=== PATIENT | male | born 1965 | race Caucasian/White ===

== ENCOUNTER 2019-01-01 10:31 | Day surgery (SDC) | payer OTHER ==
--- NOTE | 2019-01-01 06:41 | History and Physical - [place] ---
CHIEF COMPLAINT/HISTORY OF CHIEF COMPLAINT: This patient presents with a history of intractable lumbar radiculopathy. Due to the failure of therapy a spinal cord stimulator trial was conducted on 12/10/18 with 75-85% pain control. Due to the failure of therapy and the success of the trial, the patient presents for implantation of a permanent system. PAST MEDICAL HISTORY: Chronic obstructive pulmonary disease. PAST SURGICAL HISTORY: None listed. MEDICATIONS ON ADMISSION: List to be provided. No blood thinners. ALLERGIES: None. FAMILY/PSYCHOSOCIAL HISTORY: Social history - Noncontributory. Family history - Diabetes. SYSTEMS REVIEW: The patient is appropriate in no acute distress. The remainder of the systems review is positive for glasses. PHYSICAL EXAMINATION: Height is 5'10", weight is 250. No vital signs. HEENT: Within normal limits. LUNGS: Clear. HEART: Rapid and regular. ABDOMEN: Nontender. MUSCULOSKELETAL: Examination of the musculoskeletal system shows pain across the back with a left and right lower extremity pain pattern somewhat more left than right. There are mild motor and sensory abnormalities to the left. Ambulation - No assistive device utilized. NEUROLOGIC: Cranial nerves are intact. IMPRESSION: LUMBAR RADICULOPATHY, ICD-10 CODE M54.16 AND M54.17. PLAN: The patient is here for an implanted spinal cord stimulator after a successful trial and the failure of all other therapies. The procedure will be considered outpatient although an overnight stay will be evaluated. JOB NUMBER: [id number] MTDD
[~2019-01-01 10:31] MED LIST: ACETAMINOPHEN 1,000 MG/100 ML BTL IVPB ONE; FAMOTIDINE 20MG TABLET PO ONE; MECLIZINE 25 MG TABLET PO ONE; METOCLOPRAMIDE 10 MG TABLET PO ONE; VANCOMYCIN 1GM/200ML PREMIX 1 GM/200 ML PIGGYBACK IVPB ONE
[2019-01-01] MEDS ORDERED: LIDOCAINE 2% MDV (20MG/ML) 20ML VIAL IV ONE (10:32)
[2019-01-01] MEDS ORDERED: GLYCOPYRROLATE 0.2 MG/ML ML IV ONE (10:32)
[2019-01-01] MEDS ORDERED: ALFENTANIL HCL 500 MCG/1ML, 2ML AMP IV ONE (10:32)
[2019-01-01] MEDS ORDERED: MIDAZOLAM HCL 2MG/2ML VIAL IV ONE (10:32)
[2019-01-01] MEDS ORDERED: KETAMINE HCL 100MG/1ML VIAL INJ ONE (10:32)
[2019-01-01] MEDS ORDERED: PROPOFOL 10 MG/ML VIAL IV ONE (10:32)
[2019-01-01] MEDS ORDERED: 0.9 % SODIUM CHLORIDE 1000ML 1,000 ML IV ONE (11:00)
[2019-01-01] MEDS ORDERED: CEFAZOLIN 1G VIAL IVP ONE (13:25)
[2019-01-01] MEDS ORDERED: LIDOCAINE 1% W/EPI 1:100,000 MDV 20 ML VIAL SQ ONE ×2 (13:36)
[2019-01-01] MEDS ORDERED: BUPIVACAINE 0.5% W/EPI MPF 30 ML VIAL SQ ONE ×2 (13:37)
[2019-01-01] MEDS ORDERED: RINGERS SOLUTION,LACTATED 1,000 ML IV ONE (14:49)
--- NOTE | 2019-01-02 19:56 | RADIOLOGY REPORT ---
EXAM: SPINE, 1 VIEW HISTORY: STATUS POST SPINAL STIMULATOR DEVICE PLACEMENT. TECHNIQUE: A single AP view of the thoracic spine was obtained. COMPARISON: None. FINDINGS: A spinal stimulator is in place with the electrodes extending to the level of the superior endplate of T7. No complicating features are identified. Mild multilevel degenerative changes are present throughout the thoracic region. IMPRESSION: SPINAL STIMULATOR ELECTRODES IN PLACE EXTENDING TO THE LEVEL OF THE SUPERIOR ENDPLATE OF T7. JOB NUMBER: [id number] MTDD
--- NOTE | 2019-01-03 07:13 | Operative Note ---
DATE OF SURGERY: 01/01/2019 PREOPERATIVE DIAGNOSIS: Lumbar radiculopathy ICD10 code M54.16 and M54.17. OPERATION: 1. Fluoroscopic-guided epidural access left T12-L1, placement of spinal cord stimulator lead 1 [place] [employer] Infinion 16, 6 electrodes positioned left T7. 2. Fluoroscopic-guided epidural access left L1-2, placement of spinal cord stimulator lead 2 [employer] In[employer] 16, 6 electrodes positioned right T7. 3. Complex programming of lead 1 over 20 minutes followed by complex programming of lead 2 over 20 minutes. 4. Incision and subcutaneous dissection and anchoring of lead 1 and lead 2 to supraspinous fascia with a [employer] locking anchor and nonabsorbable suture. 5. Incision and subcutaneous dissection and creation of subcutaneous pouch at right flank, placement of generator site picked by patient. 6. Tunneling between pouches, placement of external portion of lead 1 and lead 2 into generator pouch, each lead interfaced with generator. 7. Placement of generator pouch, placement of leads into the pouch, closure of both incisions using Stratafix suture 2-0 fascia, 3-0 skin, and Dermabond closure. A complex recovery room programming internal generator home use 2 stimulators 20 minutes. SURGEON: Cesar Mcwilliams, ANESTHESIA: Local with sedation. ANESTHESIA PROVIDER: Vanessa Connolly INDICATION: This patient presents with a history of intractable lumbar radiculopathy. Due to the failure of all therapies, a stimulator trial was conducted with 75% to 85% pain control. Due to the failure of therapy and the success of the trial, the patient presents today for implantation of permanent system. PROCEDURE: Intravenous line, vital sign monitoring, IV sedation by Anesthesia. Patient positioned prone. Sterile prep, sterile technique. Under imaging, the epidural interspace from the left at T12-L1 and L1-2 were marked, infiltrated with local. Then using 2 standard curved access Epimed needles with loss of resistance, the space was accessed. At 12-1, spinal cord stimulator lead 1, a [employer]fin[employer] 16, 6 electrodes positioned left of midline at T7. With the access at 1-2, spinal cord stimulator lead 2, [employer] 16, 6 electrodes positioned right at T7. The access was atraumatic. No blood, no CSF. With the leads in appropriate position and the patient awake, complex programming of the 2 leads over 20 minutes performed resulting in a complete pattern stimulation across the back and into the legs. Patient indicating we had all the areas of the pain. He was given the option to reprogram, to continue to program, or to implant the device. He opted to implant the device. The question was repeated with the same response. He was re-sedated. The skin above and below the needles infiltrated. Incision was made and subcutaneous dissection was conducted to the supraspinous fascia. The needles were removed and then each lead was anchored to the supraspinous fascia with a [place] locking anchor and nonabsorbable suture. At the right flank, a site picked by the patient, skin infiltrated, incision made, and subcutaneous dissection was conducted to form a pouch of suitable size and depth for the generator, a [place] programmable rechargeable WaveWriter. The skin below was infiltrated with local at both sites for postoperative pain control. A tunneling tool was used to carry the leads in the generator pouch, and then each lead was interfaced to the generator. Antibiotic irrigation and Bovie for hemostasis. The generator and its connections were placed into the pouch. The leads were placed into their own pouch, and then both incisions were closed using Stratafix suture, 2-0 fascia, and 3-0 skin. Dermabond closure was then used to approximate the edges of both wounds. He was transferred to recovery room stable. No side effects from the procedure or sedation. He had full functionality of extremities. Complex reprogramming was performed reestablishing stimulation and pain control. The patient and were instructed on the use of the system. He was requesting discharge home. DISCHARGE INSTRUCTIONS: 1. The sites to remain clean and dry. No showering or bathing in any way that would disrupt the dressings. If it happens, contact the clinic. 2. Standard medications resumed including the antibiotic Levaquin which will be substituted for Bactrim DS 1 b.i.d. because of his history of MRSA. He will be evaluated in the office in 10-14 days. Office to contact the patient to set up the appointment. NANCY
== END 2019-01-01 15:30 | disposition home or self-care (01) ==
LOC: SUR 10:31
PROVIDERS: ATTEND Pain Medicine Interventional Pain Medicine
DX: M54.16 Radiculopathy, lumbar region (principal); M54.17 Radiculopathy, lumbosacral region; M10.9 Gout, unspecified; A49.02 Methicillin resistant Staphylococcus aureus infection, unspecified site
CPT/HCPCS: 63663; 63685; 01936; 95972; 72020; J3490; J3370; C1820; C1883; J0690; J7030; J7120